=== PATIENT | female | born 1985 | race Caucasian/White ===

== ENCOUNTER 2019-11-17 02:28 | Emergency (ER) | payer OTHER ==
[~2019-11-17] VITALS: Ht 157.5 cm; Wt 87.3 kg
[2019-11-17 03:29] LABS: BASOPHIL % 0.7 % (0-2); PLATELET COUNT 325 x10^3mcL (130-400); RED CELL DISTRIBUTION WIDTH 14.8 % (11.5-14.5)
[2019-11-17 03:42] LABS: CREATININE SERUM 0.6 mg/dL (0.6-1.0); GFR1 > 60 mL/min
[2019-11-17 03:44] LABS: SODIUM SERUM 141 mmol/L (136-145)
[2019-11-17 03:45] LABS: CHLORIDE SERUM 106 mmol/L (98-107); POTASSIUM SERUM 4.1 mmol/L (3.5-5.1)
[2019-11-17 03:46] LABS: GLUCOSE SERUM 106 mg/dL (74-106)
[2019-11-17 03:47] LABS: ALBUMIN 3.5 g/dL (3.4-5.0); TOTAL PROTEIN, SERUM 7.6 g/dL (6.4-8.2)
[2019-11-17 03:48] LABS: AST/SGOT 13 U/L (15-37); BILIRUBIN TOTAL 0.29 mg/dL (0.20-1.00); CALCIUM 8.2 mg/dL (8.5-10.1)
[2019-11-17 03:49] LABS: ALKALINE PHOSPHATASE 88 U/L (46-116); ALT/SGPT 27 U/L (14-59)
[2019-11-17 04:56] VITALS: BP 111/71
== END 2019-11-17 04:56 | disposition home or self-care (01) ==
LOC: ED 02:28
PROVIDERS: Emergency Medicine
DX: R11.10 Vomiting, unspecified (principal); R19.7 Diarrhea, unspecified; R10.9 Unspecified abdominal pain
CPT/HCPCS: 36415; 87804; J0500; Q0162

== ENCOUNTER 2019-11-19 20:15 | Emergency (ER) | payer OTHER ==
[~2019-11-19] VITALS: Ht 157.5 cm; Wt 88.2 kg
[2019-11-19 20:35] VITALS: Ht 157.5 cm; Wt 88.2 kg
[2019-11-19 21:52] LABS: BASOPHIL % 0.3 % (0-2); PLATELET COUNT 321 x10^3mcL (130-400); RED CELL DISTRIBUTION WIDTH 14.8 % (11.5-14.5)
[2019-11-19 22:09] LABS: CALCIUM 8.3 mg/dL (8.5-10.1); CARBON DIOXIDE 29.4 mmol/L (21-32); CHLORIDE SERUM 105 mmol/L (98-107); CREATININE SERUM 0.6 mg/dL (0.6-1.0); GFR1 > 60 mL/min; GLUCOSE SERUM 98 mg/dL (74-106); POTASSIUM SERUM 4.2 mmol/L (3.5-5.1); SODIUM SERUM 142 mmol/L (136-145)
[2019-11-19 22:14] LABS: ALKALINE PHOSPHATASE 76 U/L (46-116); ALT/SGPT 33 U/L (14-59); AST/SGOT 15 U/L (15-37); BILIRUBIN TOTAL 0.2 mg/dL (0.20-1.00); LIPASE 114 IU/L (73-393)
[2019-11-19 22:15] LABS: ALBUMIN 3.2 g/dL (3.4-5.0)
[2019-11-19 23:16] VITALS: BP 125/66
== END 2019-11-19 23:16 | disposition home or self-care (01) ==
LOC: ED 20:15
PROVIDERS: Emergency Medicine
DX: K52.9 Noninfective gastroenteritis and colitis, unspecified (principal); R51 Headache
CPT/HCPCS: J7030